=== PATIENT | female | born 1960 | race Hispanic/Latino ===

== ENCOUNTER 2016-07-04 19:11 | Emergency (ER) | payer BC ==
[2016-07-04 19:40] VITALS: BP 145/80; PULSE 78; RESP 18; TEMP 97.7; O2SAT 98
--- NOTE | 2016-07-04 20:20 | ED PDOC ---
HPI: Head Injury Time Seen by Provider: 07/04/16 20:00 Chief Complaint (Nursing): Trauma Chief Complaint (Provider): head injury Injury Occurred (Timing): Hours Ago: (1) Patient States: Fell Striking Head Additional History Per: Patient Additional Complaint(s): 55 y/o female history of left upper extremity DVT (on Pradaxa) presents for eval of head injury sustained prior to arrival. Patient states she stumbled over curb and fell, landed on right side of forehead. Associated mild localized headache. Denies LOC, dizziness, nausea/vomiting, vision changes, extremity numbness/weakness, chest pain, shortness of breath, palpitations, neck /back pain. Past Medical History Reviewed: Historical Data, Nursing Documentation, Vital Signs Vital Signs: Last Vital Signs Temp 97.7 F 07/04/16 19:35 Pulse 78 07/04/16 19:35 Resp 18 07/04/16 19:35 BP 145/80 07/04/16 19:35 Pulse Ox 98 07/04/16 19:35 - Medical History PMH: Deep Vein Thrombosis - Surgical History Surgical History: Other surgeries: hysterectomy - Family History Family History: States: Unknown Family Hx - Living Arrangements Living Arrangements: Alone - Allergies Allergies/Adverse Reactions: Allergies Allergy/AdvReac Type Severity Reaction Status Date / Time No Known Allergies Allergy Verified 07/04/16 19:34 Review of Systems ROS Statement: Except As Marked, All Systems Reviewed And Found Negative Neurological: Positive for: Headache Physical Exam - Reviewed Nursing Documentation Reviewed: Yes Vital Signs Reviewed: Yes - Physical Exam Appears: Positive for: Well, Non-toxic, No Acute Distress Head Exam: Negative for: ATRAUMATIC (right frontal contusion, tender to touch) Skin: Positive for: Normal Color Eye Exam: Positive for: Normal appearance, EOMI, PERRL ENT: Positive for: Normal ENT Inspection Cardiovascular/Chest: Positive for: Regular Rate, Rhythm Respiratory: Positive for: Normal Breath Sounds Extremity: Positive for: Normal ROM Neurologic/Psych: Positive for: Alert, Oriented - ECG O2 Sat by Pulse Oximetry: 98 - Progress ED Course And Treament: CT head, tylenol PO EXAM: CT Head Without Intravenous Contrast CLINICAL HISTORY: 55 years old, female; Injury or trauma; Fall; Initial encounter; Concussion / head injury; Consciousness not specified; Injury date: 07-04-2016; Injury details: Tripped and fell, hit rt side of forehead; Additional info: Right-sided head injury, on pradaxa. Sent casey Guardado. Doc. With request TECHNIQUE: Axial computed tomography images of the head/brain without intravenous contrast. This CT exam was performed using one or more of the following dose reduction techniques: automated exposure control, adjustment of the mA and/or kV according to patient size, and/or use of iterative reconstruction technique. Coronal and sagittal reformatted images were created and reviewed. COMPARISON: No relevant prior studies available. FINDINGS: Brain: Mild volume loss No hemorrhage. No significant white matter disease. No edema. Ventricles: Unremarkable. No ventriculomegaly. Bones/joints: Unremarkable. No acute fracture. Soft tissues: Unremarkable. Sinuses: Minimal mucosal thickening. No acute sinusitis. Mastoid air cells: Unremarkable as visualized. No mastoid effusion. IMPRESSION: No intracranial hemorrhage.Please see discussion above. Patient educated on findings, discharged with instructions to follow up PMD 2-3 days. Advised ice application to affected area, Tylenol PRN pain. Return to ED for worsening/concerning symptoms. Disposition - Clinical Impression Clinical Impression: Head injury - Patient ED Disposition Is Patient to be Admitted: No Counseled Patient/Family Regarding: Studies Performed, Diagnosis, Need For Followup - Disposition Disposition: Routine/Home Disposition Time: 22:19 Condition: STABLE Instructions: Head Injury (ED), Contusion in Adults (ED)
--- NOTE | 2016-07-05 09:04 | CT ---
PROCEDURE: CT HEAD WITHOUT CONTRAST. HISTORY: right-sided head injury, on Pradaxa COMPARISON: None available. TECHNIQUE: Axial computed tomography images were obtained through the head/brain without intravenous contrast. Radiation dose: Total exam DLP = 854.97 mGy-cm. This CT exam was performed using one or more of the following dose reduction techniques: Automated exposure control, adjustment of the mA and/or kV according to patient size, and/or use of iterative reconstruction technique. FINDINGS: HEMORRHAGE: No intracranial hemorrhage. BRAIN: There is no mass, mass effect or abnormal extra-axial fluid collection. There is no territorial infarction. VENTRICLES: There is mild age-related global parenchymal volume loss and proportionate enlargement of the ventricles and cortical sulci, slightly advanced for the patient's age. CALVARIUM: The skull base and calvarium are normal. There is hyperostosis frontalis interna. PARANASAL SINUSES: There is mild mucoperiosteal thickening in the anterior ethmoid air cells. The remaining included paranasal sinuses are predominantly clear. MASTOID AIR CELLS: Predominantly clear. There is cerumen in bilateral external auditory canals. OTHER FINDINGS: None. IMPRESSION: No acute intracranial abnormality. Mild global parenchymal volume loss, advanced for the patient's age. A preliminary report was provided by [employer] services.
== END 2016-07-04 22:24 | disposition home or self-care (01) ==
LOC: H.ER 19:11
DX: S09.90XA Unspecified injury of head, initial encounter (principal); W01.0XXA Fall on same level from slipping, tripping and stumbling without subsequent striking against object, initial encounter; Y93.89 Activity, other specified; Z86.718 Personal history of other venous thrombosis and embolism